=== PATIENT | male | born 1970 | race Caucasian/White ===

== ENCOUNTER → 2024-08-19 23:45 | Emergency (ER) | payer BC, SELFPAY ==
[2024-08-19 23:47] VITALS: BP 125/84
--- NOTE | 2024-08-20 00:23 | ED.GENMED ---
History of Present Illness
General
Chief Complaint: Abdominal Symptoms
Source: patient and family
Exam Limitations: none
Time Seen by Provider: 08/20/24 00:12
Nursing documentation reviewed up to this point in time: agreed with
History of Present Illness
History of Present Illness:
54-year-old male with upper abdominal pain for the last few weeks and left flank pain. Denies any urinary issues. He drinks alcohol daily. He states he had several beers tonight.
Past History
Past History
ED Past Medical History: None
ED Past Surgical History: Orthopedic (Left meniscus and ACL repair, left knee replaced, right rotator cuff surgery)
Social History
Tobacco: Smoker
Alcohol: Daily
Drug: None
Employment: Employed
Review of Systems
Review of Systems
Allergies reviewed?: Yes
All Other Systems: Not applicable
Constitutional: Reports no symptoms
EENT: Reports no symptoms
Respiratory: Reports no symptoms
Cardiac: Reports no symptoms
ABD/GI: Reports abdominal pain
: Reports flank pain
Musculoskeletal: Reports no symptoms
Skin: Reports no symptoms
Neurological: Reports no symptoms
Endocrine: Reports no symptoms
Hematologic/Lymphatic: Reports no symptoms
Psychiatric: Reports no symptoms
Phy Exam
Physical Exam
Physical Exam:
Physical Exam
General: no apparent distress, not acutely ill
Neck: supple. no meningeal signs. normal posterior pharynx
Heart: s1/s2 regular rate and rhythm, no murmur. equal radial
pulses.
HEENT: Pupils equal round reactive to light, EOMI
Lungs: no acute respiratory distress. clear bilaterally
Abdomen: normal bowel sounds. not tender. Left CVAT
Neuro: alert and oriented. no focal neurological deficits cranial nerves II through XII intact
Skin: no rash
Psychiatric: well kept. interactive and cooperative
Extremities: no edema. no calf tenderness. negative homans. good distal pulses
Course
Orders/Labs/Results
Orders:
Orders
08/20/24 00:21
CT Abd/pel Without Iv Or Oral Urgent
Comment:
Reason For Exam: left flank pain 3-4 days
Ketorolac [Toradol] 15 mg IV NOW STA
08/20/24 00:22
IV Insert/Care/Rem.- Treatment PRN
0.9% Sodium Chloride 1000 ml [Nss] 1,000 ml IV BOLUS
08/20/24 00:37
Ketorolac [Toradol] 15 mg .ROUTE .STK-MED ONE
08/20/24 00:44
Complete Blood Count/With Diff Urgent
Comprehensive Metabolic Panel Urgent
Lipase Urgent
Urinalysis Reflex To Culture Urgent
Date Specimen was Collected: 08/20/24
Time Specimen was Collected: 00:38
Abnormal Lab Results
08/20/24
00:44
RBC 3.76 L 10^6/uL
(4.70-6.10)
Hct 36.2 L %
(39.0-52.0)
MCV 96.3 H fL
(80.0-94.0)
MCH 35.1 H pg
(27.0-31.0)
Absolute Lymphs (auto) 3.5 H 10^3/uL
(1.2-3.4)
Absolute Monos (auto) 0.9 H 10^3/uL
(0.1-0.6)
Monocytes % 9.6 H %
(1.7-9.3)
BUN 8 L mg/dl
(9-20)
Creatinine 0.6 L mg/dL
(0.7-1.3)
08/20/24 00:44
08/20/24 00:44
Vital Signs
Initial and Last Documented VS:
Initial Vital Signs
Temp Pulse Resp BP Pulse Ox
97.8 F 91 18 125/84 98
08/19/24 23:47 08/19/24 23:47 08/19/24 23:47 08/19/24 23:47 08/19/24 23:47
Last Documented Vital Signs
Temp Pulse Resp BP Pulse Ox
97.8 F 94 18 123/50 98
08/19/24 23:47 08/20/24 00:47 08/20/24 00:47 08/20/24 00:47 08/20/24 00:47
MDM/Problems Addressed
Differential Diagnosis Includes:
Kidney stone, pyelonephritis, UTI, musculoskeletal back pain
MDM/Problems Addressed:
54-year-old male with left flank pain. No signs of intra-abdominal infection, UTI or kidney stone. Patient stable for discharge. Follow-up with primary care
*Radiology
Radiology exam reviewed: radiology read reviewed (CT abdomen pelvis noncontrast no acute findings)
*Pulse Oximetry
Patient hypoxic: no
*Critical Care Note
Total Time (30-74mins, 75-104mins- exclusive of procedures): Not Applicable
Patient Management
Social determinants of health affecting care: Living situation and Substance abuse
Escalation/DeEscalation of care consider admission/obs:
Admit not indicated
ED Attending Note
-
Portions of this chart may have been created with voice recognition software.� Occasional wrong word or��sound alike� substitutions may have occurred due to the inherent limitations of voice recognition software.
Discharge Plan
Departure
Patient Disposition: Home (Routine Discharge)
Date of Disposition: 08/20/24
Time of Disposition: 01:55
Patient with high blood pressure during this ER visit?: Yes
Condition: Good
Discharge Problem:
Acute left flank pain
Instructions: Flank Pain ED, BLOOD PRESSURE
Activity Restrictions/Additional Instructions:
Follow-up primary care. Return for any concerns.
Interventions
Interventions:
*Risk Screen - Suicide Last Done: 08/19/24 23:47
*General Assessment Last Done: 08/19/24 23:47
*Neglect/Abuse Screening Last Done: 08/19/24 23:47
TO-Pbqqmp-Uqyagnttyz Assessment Last Done: 08/20/24 00:35
Discharge Date and Time
Print Language: ALB[place]
[2024-08-20 00:47] VITALS: BP 123/50; BMI 20.2
[2024-08-20] MEDS: NSS 1000 IV (00:49)
[2024-08-20] MEDS: TORADOL 15 MG IV (00:50)
[2024-08-20 01:01] LABS: Urine Albumin Negative (Neg - Trace); Urine Bilirubin Negative (Negative); Urine Character Clear (Clear); Urine Color Straw; Urine Glucose Negative (Negative); Urine Ketone Negative (Negative); Urine Leukocyte Negative (Negative); Urine Nitrite Negative (Negative); Urine Occult Blood Negative (Negative); Urine Urobilinogen Negative (Neg - 1+)
[2024-08-20 01:02] LABS: % Basophils 0.7 % (0-2); % Eosinophils 3.6 % (0-6); % Immature Granulocytes 0.3 % (0-0.5); % Lymphocytes 39.4 % (20.5-51.1); % Monocytes 9.6 % (1.7-9.3); % Neutrophils 46.4 % (42.2-75.2); Absolute Basophils 0.1 10^3/uL (0-0.2); Absolute Eosinophils 0.3 10^3/uL (0-0.7); Absolute Lymphocytes 3.5 10^3/uL (1.2-3.4); Absolute Monocytes 0.9 10^3/uL (0.1-0.6); Absolute Neutrophils 4.1 10^3/uL (1.4-6.5); Hematocrit 36.2 % (39.0-52.0); Hemoglobin 13.2 g/dL (13.0-18.0); Mean Corp Hgb Conc. 36.5 g/dL (33.0-37.0); Mean Corpuscular Hgb 35.1 pg (27.0-31.0); Mean Corpuscular Volume 96.3 fL (80.0-94.0); Mean Platelet Volume 9.6 fL (7.4-10.4); Nucleated Red Blood Cells % 0 % (-); Platelet Count 202 10^3/uL (130-400); Red Blood Cell Count 3.76 10^6/uL (4.70-6.10); Red Cell Dist. Width 12.6 % (11.5-14.5); White Blood Cell Count 8.9 10^3/uL (4.8-10.8)
[2024-08-20 01:14] LABS: ALT (SGPT) 24 U/L (0-50); AST (SGOT) 42 U/L (17-59); Albumin 4.3 g/dl (3.5-5.0); Alkaline Phosphatase 79 U/L (38-126); Blood Urea Nitrogen 8 mg/dl (9-20); Calcium 8.9 mg/dl (8.4-10.2); Carbon Dioxide 23 mmol/L (22-30); Chloride 103 mmol/L (98-107); Estimated Creatinine Clearance > 125 ml/min; Glucose 89 mg/dl (70-99); Potassium 3.8 mmol/L (3.5-5.1); Sodium 139 mmol/L (135-145); Total Bilirubin 0.4 mg/dl (0.2-1.3); Total Protein 6.7 g/dl (6.3-8.2); eGFR > 60.00
[2024-08-20 01:28] LABS: Lipase 186 U/L (23-300)
[2024-08-20 02:00] VITALS: BP 117/66
== END | disposition home or self-care (01) ==
LOC: EMR 23:45
PROVIDERS: EMERGENCY PHYSICIAN Emergency Medicine
DX: R10.9 Unspecified abdominal pain (principal); F17.200 Nicotine dependence, unspecified, uncomplicated; R03.0 Elevated blood-pressure reading, without diagnosis of hypertension
CPT/HCPCS: 99284; 96374; 96361; 74176; 80053; 81003; 83690; 85025

== ENCOUNTER 2025-02-14 19:28 | Emergency (ER) | payer BC, SELFPAY ==
[2025-02-14 19:32] VITALS: BP 151/90
[2025-02-14 19:54] LABS: % Basophils 1.2 % (0-2); % Immature Granulocytes 0.1 % (0-0.5); % Lymphocytes 49.4 % (20.5-51.1); % Monocytes 10.1 % (1.7-9.3); % Neutrophils 37.2 % (42.2-75.2); Absolute Basophils 0.1 10^3/uL (0-0.2); Absolute Eosinophils 0.1 10^3/uL (0-0.7); Absolute Lymphocytes 3.4 10^3/uL (1.2-3.4); Absolute Monocytes 0.7 10^3/uL (0.1-0.6); Absolute Neutrophils 2.6 10^3/uL (1.4-6.5); Hematocrit 39.8 % (39.0-52.0); Hemoglobin 14.4 g/dL (13.0-18.0); Mean Corp Hgb Conc. 36.2 g/dL (33.0-37.0); Mean Corpuscular Hgb 35.3 pg (27.0-31.0); Mean Corpuscular Volume 97.5 fL (80.0-94.0); Nucleated Red Blood Cells % 0 % (-); Platelet Count 257 10^3/uL (130-400); Red Blood Cell Count 4.08 10^6/uL (4.70-6.10); Red Cell Dist. Width 13.5 % (11.5-14.5); White Blood Cell Count 6.9 10^3/uL (4.8-10.8)
[2025-02-14 20:09] LABS: INR 0.84; PT 11.8 Sec (11.4-14.6)
[2025-02-14 20:10] LABS: ALT (SGPT) 22 U/L (0-50); AST (SGOT) 46 U/L (17-59); Albumin 4.5 g/dl (3.5-5.0); Alkaline Phosphatase 89 U/L (38-126); Blood Urea Nitrogen 6 mg/dl (9-20); Calcium 9.2 mg/dl (8.4-10.2); Carbon Dioxide 30 mmol/L (22-30); Chloride 104 mmol/L (98-107); Glucose 109 mg/dl (70-99); Sodium 143 mmol/L (135-145); Total Bilirubin 0.5 mg/dl (0.2-1.3); Total Protein 7.3 g/dl (6.3-8.2); eGFR > 60.00
[2025-02-14 20:24] LABS: Troponin I < 0.012 ng/ml
[2025-02-14 20:50] VITALS: BP 133/91; BMI 19.4
--- NOTE | 2025-02-14 21:05 | ED.GENMED ---
History of Present Illness
General
Chief Complaint: Breathing Problem
Source: patient
Exam Limitations: none
Time Seen by Provider: 02/14/25 20:44
History of Present Illness
History of Present Illness:
55yoM with a history of tobacco use (1-2ppd) and 'early stages of COPD' presenting with his family members for evaluation of chest pain. Patient reports left-sided chest pain that has been ongoing for the past 2 to 3 weeks. Pain became worse today
around 6 PM. He states he was drinking alcohol for his birthday today. He denies any trauma to the chest. Pain is described as feeling a stabbing sensation in his heart. Pain is worse with palpation and breathing. He has also had a productive
cough for the past several weeks. Cough was initially productive of yellowish sputum. He did notice some blood in his sputum today. He denies any fevers, calf pain, leg swelling. He does not take any prescription medication.
Past History
Past History
ED Past Medical History: None
ED Past Surgical History: Orthopedic (Left meniscus and ACL repair, left knee replaced, right rotator cuff surgery)
Social History
Tobacco: Smoker
Alcohol: Daily
Drug: None
Employment: Employed
Phy Exam
General Physical Exam
General Presentation: well appearing and no apparent distress
General age: appears stated age
General Skin: warm and dry
General Habitus: normal
General Mental: alert
ENT Exam
ENT Exam: normocephalic
Cardiovascular Exam
Cardiovascular Exam: regular rate/rhythm, no edema, no murmur and normal peripheral pulses
Pulmonary Exam
Pulmonary Exam: lungs clear, no respiratory distress, no rales, no crackles, no rhonchi, no wheezing and other (Patient winces on palpation of the L anterior chest wall. No skin changes. )
Neurological Exam
Neurological Exam: alert
[place] Coma Scale
Eye Opening: Spontaneous
Verbal Response: Oriented
Motor Response: Obeys Commands
GCS Total Score: 15
Skin Exam
Skin Exam: normal color and warm/dry
Psychiatric Exam
Psychiatric Exam: normal mood/affect
Scores
Heart Failure Risk
Heart Failure Risk Score: Not Applicable
Course
Orders/Labs/Results
Orders:
Orders
02/14/25 19:34
CR Chest - 2 Views Urgent
Comment:
Reason For Exam: SOB/chest pain
02/14/25 19:35
EKG [Electrocardiogram (*1)] Urgent
Reason for Study: Chest Pain
EKG- Treatment ONCE
02/14/25 19:48
Complete Blood Count/With Diff Urgent
Comprehensive Metabolic Panel Urgent
Prothrombin Time Urgent
Troponin I Urgent
02/14/25 21:04
CT Chest PE Study Urgent
Comment:
Reason For Exam: Pleuritic L sided chest pain, hemoptysis
02/14/25 21:05
EKG- Treatment ONCE
02/14/25 22:27
Ketorolac [Toradol] 15 mg IV NOW STA
02/14/25 22:28
Troponin I Urgent
02/14/25 22:30
Electrocardiogram (*1) Urgent
Reason for Study: Chest Pain
Abnormal Lab Results
02/14/25
19:48
RBC 4.08 L 10^6/uL
(4.70-6.10)
MCV 97.5 H fL
(80.0-94.0)
MCH 35.3 H pg
(27.0-31.0)
Absolute Monos (auto) 0.7 H 10^3/uL
(0.1-0.6)
Neutrophils % 37.2 L %
(42.2-75.2)
Monocytes % 10.1 H %
(1.7-9.3)
BUN 6 L mg/dl
(9-20)
Glucose 109 H mg/dl
(70-99)
02/14/25 19:48
02/14/25 19:48
Vital Signs
Initial and Last Documented VS:
Initial Vital Signs
Temp Pulse Resp BP Pulse Ox
98.7 F 102 18 151/90 99
02/14/25 19:32 02/14/25 19:32 02/14/25 19:32 02/14/25 19:32 02/14/25 19:32
Last Documented Vital Signs
Temp Pulse Resp BP Pulse Ox
98.0 F 84 18 117/60 95
02/14/25 20:50 02/14/25 22:48 02/14/25 22:48 02/14/25 22:48 02/14/25 22:48
MDM/Problems Addressed
Differential Diagnosis Includes:
55yoM here with chest pain. C/o stabbing pain. Worse with breathing and palpation. Also having a cough and had some hemoptysis earlier today. Smokes 1-2ppd. He is mildly hypertensive with otherwise stable vitals. He is nontoxic-appearing. There
is reproducible chest wall tenderness on exam. Differential diagnosis includes but is not limited to: Bronchitis, pneumonia, PE, malignancy, costochondritis, ACS
Initial ED plan: Cardiac labs, EKG, and chest x-ray obtained in triage. EKG shows normal sinus rhythm without ischemic changes and troponin within normal limits. Chest x-ray is clear. Will check CTA chest and delta troponin/EKG.
*EKG
Interpreted by ED Provider?: Yes
EKG Intrepretation Date: 02/14/25
Heart Rate: 91
Rate: normal
Rhythm: sinus
[place]: normal axis
Interval: normal interval
QRS Pattern: right bundle branch block (incomplete)
Ischemia: no ischemia
*Critical Care Note
Total Time (30-74mins, 75-104mins- exclusive of procedures): Not Applicable
Update Note
Update Note:
CT is negative for pulmonary embolism. There is evidence of bronchiolitis on imaging. Thyroid nodule also seen for which outpatient ultrasound is recommended. Patient and son informed of incidental finding and patient was provided a copy of his
CT radiology report. Repeat EKG and troponin unchanged. No indication for hospitalization at this time. Suspect chest pain is musculoskeletal due to his coughing. He was started on a course of prednisone and azithromycin for his bronchiolitis.
Supportive care discussed. Advised close follow-up with PCP and ED return precautions discussed. Patient discharged in stable condition.
ED Attending Note
-
Portions of this chart may have been created with voice recognition software.� Occasional wrong word or��sound alike� substitutions may have occurred due to the inherent limitations of voice recognition software.
Discharge Plan
Departure
Patient Disposition: Home (Routine Discharge)
Date of Disposition: 02/14/25
Time of Disposition: 23:07
Patient with high blood pressure during this ER visit?: No
Discharge Problem:
Chest wall pain, Bronchiolitis, Thyroid nodule
Instructions: Chest Pain PCP Follow Up
Prescriptions:
New
prednisone 20 mg tablet
40 mg PO DAILY 5 Days Qty: 10 0RF
azithromycin [Zithromax] 250 mg tablet
250 mg PO DAILY Qty: 6 0RF
Rx Instructions:
500mg on day 1, followed by 250mg once daily on day 2-5.
Referrals:
Noble Desouza MD [Family Provider] -
Activity Restrictions/Additional Instructions:
Take prednisone and Z-Sami as prescribed. Apply heat to affected area. Take Tylenol and ibuprofen as needed for pain.
Please call your family doctor tomorrow to schedule a follow-up appointment. You will need an ultrasound for the nodule seen on your thyroid on today's CT scan.
Return to the ER with any new or worsening symptoms.
Interventions
Interventions:
*Risk Screen - Suicide Last Done: 02/14/25 19:34
*General Assessment Last Done: 02/14/25 19:34
*Neglect/Abuse Screening Last Done: 02/14/25 19:34
*ED COVID-19 Vaccine History Last Done: 02/14/25 19:34
*Nursing Disposition Last Done: 02/14/25 23:17
ED- Cardiac Assessment Last Done: 02/14/25 20:52
ED- Pulmonary Assessment Last Done: 02/14/25 20:56
Discharge Date and Time
Discharge Date/Time: 02/14/25 23:18
Print Language: [place]
[2025-02-14 22:48] VITALS: BP 117/60
[2025-02-14] MEDS: TORADOL 15 MG IV (22:49)
[2025-02-14 23:00] LABS: Troponin I < 0.012 ng/ml
== END 2025-02-14 23:18 | disposition home or self-care (01) ==
LOC: EMR 19:28
PROVIDERS: Emergency Medicine; Physician Assistant; EMERGENCY PHYSICIAN Emergency Medicine; FAMILY PHYSICIAN Internal Medicine
DX: R07.89 Other chest pain (principal); J21.9 Acute bronchiolitis, unspecified; E04.1 Nontoxic single thyroid nodule; J44.0 Chronic obstructive pulmonary disease with (acute) lower respiratory infection; F17.210 Nicotine dependence, cigarettes, uncomplicated
CPT/HCPCS: 99284; 96374; 71046; 71275; 80053; 84484; 85025; 85610; 93005; Q9967